=== PATIENT | male | born 1990 | race American Indian/Alaskan Native ===

== ENCOUNTER 2017-02-18 08:00 | Emergency (ER) | payer MEDICAID ==
[2017-02-18 08:09] VITALS: BP 125/60
[2017-02-18 08:27] LABS: Basophils % (Auto) 0.4 % (0.0-1.8); Eosinophils % (Auto) 0.5 % (0.0-4.3); Hematocrit 41.4 % (35.5-45.6); Hemoglobin 13.9 gm/dl (11.8-15.2); Mean Corpuscular HGB Conc 34 % (32-34); Mean Corpuscular Hemoglobin 32 pg (28-32); Mean Corpuscular Volume 94 fl (84-94); Platelet Count 261 K/mm3 (140-440); Red Blood Count 4.41 M/mm3 (3.65-5.03); Red Cell Distribution Width 13.8 % (13.2-15.2); White Blood Count 9.8 K/mm3 (4.5-11.0)
[2017-02-18] MEDS ORDERED: XYLOCAINE 2% INFILTRATI ONE (08:35)
[2017-02-18 08:39] LABS: Anion Gap 16 mmol/L; BUN/Creatinine Ratio 20; Blood Urea Nitrogen 14 mg/dL (9-20); Calcium 9.5 mg/dL (8.4-10.2); Carbon Dioxide 28 mmol/L (22-30); Glucose 97 mg/dL (75-100); Potassium 4.4 mmol/L (3.6-5.0); Sodium 139 mmol/L (137-145)
--- NOTE | 2017-02-18 08:51 | XRay Report ---
RIGHT KNEE, 3 views: History: Right knee pain and swelling. The bony architecture is intact without evidence of fracture or dislocation. There is mild nonspecific anterior soft tissue swelling. IMPRESSION: Nonspecific soft tissue swelling. No bony abnormality detected.
[2017-02-18] MEDS ORDERED: CLEOCIN IM ONE (09:41)
--- NOTE | 2017-02-18 09:47 | Emergency Department Report ---
ED General Adult HPI - General Chief complaint: Extremity Injury, Lower Stated complaint: RIGHT KNEE PAIN Time Seen by Provider: 02/18/17 08:19 Source: patient Mode of arrival: Ambulatory Limitations: No Limitations - History of Present Illness Initial comments: 26 year old male presents with right knee pain and swelling for about 3 days with obvious swelling around the anterior right knee with pus drainage. states that it is aching and painful to walk on. denies fever. denies taking medication. -: Gradual - Related Data Previous Rx's Medication Instructions Recorded Last Taken Type Clindamycin [Clindamycin CAP] 150 mg PO TID #42 capsule 05/29/13 Unknown Rx HYDROcodone/APAP 5-325 [[place] 1 each PO Q6HR PRN #15 tablet 05/29/13 Unknown Rx 5/325 mg] Ibuprofen [Motrin] 600 mg PO Q8H PRN #15 tablet 05/29/13 Unknown Rx Ibuprofen [Motrin] 800 mg PO Q8HR PRN #20 tablet 02/18/17 Unknown Rx Sulfamethoxazole/Trimethoprim 1 each PO BID #14 tablet 02/18/17 Unknown Rx [Bactrim DS TAB] traMADol [Ultram 50 MG tab] 50 mg PO Q6HR PRN #14 tablet 02/18/17 Unknown Rx Allergies Allergy/AdvReac Type Severity Reaction Status Date / Time No Known Allergies Allergy Unverified 05/28/13 21:54 ED Review of Systems ROS: Stated complaint: RIGHT KNEE PAIN Other details as noted in HPI Constitutional: denies: chills, fever Eyes: denies: eye pain, eye discharge, vision change ENT: denies: ear pain, throat pain Respiratory: denies: cough, shortness of breath, wheezing Cardiovascular: denies: chest pain, palpitations Endocrine: no symptoms reported Gastrointestinal: denies: abdominal pain, nausea, diarrhea Genitourinary: denies: urgency, dysuria Musculoskeletal: denies: back pain, joint swelling, arthralgia Skin: other (abscess). denies: rash, lesions Neurological: denies: headache, weakness, paresthesias Psychiatric: denies: anxiety, depression Hematological/Lymphatic: denies: easy bleeding, easy bruising ED Past Medical Hx - Past Medical History Previous Medical History?: No - Surgical History Past Surgical History?: No - Social History Smoking Status: Current Every Day Smoker Substance Use Type: Marijuana - Medications Home Medications: Home Medications Medication Instructions Recorded Confirmed Last Taken Type Clindamycin [Clindamycin CAP] 150 mg PO TID #42 capsule 05/29/13 Unknown Rx HYDROcodone/APAP 5-325 [[place] 1 each PO Q6HR PRN #15 tablet 05/29/13 Unknown Rx 5/325 mg] Ibuprofen [Motrin] 600 mg PO Q8H PRN #15 tablet 05/29/13 Unknown Rx Ibuprofen [Motrin] 800 mg PO Q8HR PRN #20 tablet 02/18/17 Unknown Rx Sulfamethoxazole/Trimethoprim 1 each PO BID #14 tablet 02/18/17 Unknown Rx [Bactrim DS TAB] traMADol [Ultram 50 MG tab] 50 mg PO Q6HR PRN #14 tablet 02/18/17 Unknown Rx ED Physical Exam - General Limitations: No Limitations General appearance: alert, in no apparent distress - Head Head exam: Present: atraumatic, normocephalic - Eye Eye exam: Present: normal appearance - ENT ENT exam: Present: mucous membranes moist - Neck Neck exam: Present: normal inspection - Respiratory Respiratory exam: Present: normal lung sounds bilaterally. Absent: respiratory distress - Cardiovascular Cardiovascular Exam: Present: regular rate, normal rhythm. Absent: systolic murmur, diastolic murmur, rubs, gallop - GI/Abdominal GI/Abdominal exam: Present: soft, normal bowel sounds - Rectal Rectal exam: Present: deferred - Extremities Exam Extremities exam: Present: normal inspection - Expanded Lower Extremity Exam Right Knee exam: Present: full ROM, tenderness, swelling (abscess to the right anterior knee with fluctuance, slight induration, pus drainage. full rom of right knee) - Back Exam Back exam: Present: normal inspection - Neurological Exam Neurological exam: Present: alert, oriented X3 - Psychiatric Psychiatric exam: Present: normal affect, normal mood - Skin Skin exam: Present: warm, dry, intact, normal color. Absent: rash ED Course Vital Signs 02/18/17 08:05 Temperature 98.2 F Pulse Rate 76 Respiratory 18 Rate Blood Pressure 125/60 O2 Sat by Pulse 100 Oximetry - Procedure Description Procedures done: Right knee abscess to the anterior aspect with drainage. Prepped with Betadine. 2% lidocaine used to anesthetize the area with 5 mL. One single straight incision made with 11 blade. Water is purulent and bloody drainage. Patient tolerated procedure well. No packing. ED Medical Decision Making - Lab Data Result diagrams: 02/18/17 08:17 02/18/17 08:17 Vital Signs 02/18/17 08:05 Temperature 98.2 F Pulse Rate 76 Respiratory 18 Rate Blood Pressure 125/60 O2 Sat by Pulse 100 Oximetry Laboratory Results - last 24 hr 02/18/17 02/18/17 08:17 08:17 WBC 9.8 RBC 4.41 Hgb 13.9 Hct 41.4 MCV 94 MCH 32 MCHC 34 RDW 13.8 Plt Count 261 Lymph % (Auto) 18.6 [place] % (Auto) 9.5 H Eos % (Auto) 0.5 Baso % (Auto) 0.4 Lymph # 1.8 [place] # 0.9 H Eos # 0.0 Baso # 0.0 Seg Neutrophils % 71.0 H Seg Neutrophils # 7.0 Sodium 139 Potassium 4.4 Chloride 99.0 Carbon Dioxide 28 Anion Gap 16 BUN 14 Creatinine 0.7 L Estimated GFR > 60 BUN/Creatinine Ratio 20 Glucose 97 Calcium 9.5 - Medical Decision Making Patient is resting comfortably at this time. Tolerated the procedure well. Troponin antibiotics and follow-up. No acute distress at this time. Critical care attestation.: If time is entered above; I have spent that time in minutes in the direct care of this critically ill patient, excluding procedure time. ED Disposition Clinical Impression: Abscess of right knee Disposition: DC-01 TO HOME OR SELFCARE Is pt being admited?: No Does the pt Need Aspirin: No Condition: Good Instructions: Abscess (ED) Prescriptions: Ibuprofen [Motrin] 800 mg PO Q8HR PRN #20 tablet PRN Reason: Pain Sulfamethoxazole/Trimethoprim [Bactrim DS TAB] 1 each PO BID #14 tablet traMADol [Ultram 50 MG tab] 50 mg PO Q6HR PRN #14 tablet PRN Reason: Pain Referrals: SEKOU WYATT MD [Primary Care Provider] - 3-5 Days Time of Disposition: 09:49
== END 2017-02-18 10:06 | disposition home or self-care (01) ==
LOC: ED 08:00
DX: L02.415 Cutaneous abscess of right lower limb (principal); F17.200 Nicotine dependence, unspecified, uncomplicated; F12.10 Cannabis abuse, uncomplicated
CPT/HCPCS: 36415; 80048; 85025; 96372